=== PATIENT | female | born 1985 | race Caucasian/White ===

== ENCOUNTER 2016-10-30 13:38 | Emergency (ER) | payer MEDICAID ==
[~2016-10-30] VITALS: Ht 157.5 cm; Wt 75.5 kg
[~2016-10-30 13:38] MED LIST: ACET325T33 PO; AZIT250T94 PO; ERYT1OIN6 LEFT EYE; ERYT1OIN6 RIGHT EYE; GENT5DRO28 LEFT EYE; GUAI120S26 PO; IBUP-1542 PO; MECL12.574 PO; NAPR-260 PO; NITR-58 PO; ONDA4TAB8 PO
[2016-10-30 13:42] VITALS: Ht 157.5 cm; Wt 75.5 kg
[2016-10-30 15:21] LABS: URINE BLOOD (Dip) POC Negative (NEGATIVE)
[2016-10-30] MEDS ORDERED: NITR-58 PO (15:33)
[2016-10-30 15:39] VITALS: TEMP 98.9
--- NOTE | 2016-10-30 15:50 | ERD ---
ER Documentation Chief Complaint Date/Time DATE: 10/30/16 TIME: 15:47 Chief Complaint Complains of pain on urination with back pain HPI Patient is a 30-year-old female who presents the ED with dysuria, urgency and back pain for 1 week on and off. She also complains of suprapubic pain. Denies fever or chills. Denies hematuria. Denies abnormal vaginal discharge. Denies fever or chills. Denies abdominal pain, nausea, vomiting or diarrhea. She states that she has had UTIs in the past and feels that this is similar to what she has had in the past. Her last normal menstrual period was sometime in September. She is sexually active with one partner but does not use protection. No history of STDs. She denies pelvic pain. No other complaints. ROS All systems reviewed and are negative except as per history of present illness. Medications Home Meds Active Scripts Nitrofurantoin Monohyd Macrocr* (Macrobid*) 100 Mg Capsr, 100 MG PO BID for 7 Days, CAP Prov:OMI MARR PA-C 10/30/16 Vnalvrjfiab-F-Mkcijvsxin Hb* (Guaifenesin* DM Syrup) 120 Ml Syrup, 10 ML PO Q4H Y for COUGH, #120 ML Prov:ASTON AC PA-C 06/21/16 Acetaminophen* (Tylenol*) 325 Mg Tablet, 2 TAB PO Q8 Y for PAIN AND OR ELEVATED TEMP, #20 TAB Prov:ASTON AC PA-C 06/21/16 Azithromycin* (Zithromax*) 250 Mg Tablet, 250 MG PO .CHARYCK DIRECTED, #6 TAB TAKE 500 MG (2 TABS) THE FIRST DAY THEN 250 MG (1 TAB) DAYS 2-5 Prov:ASTON AC PA-C 06/21/16 Naproxen* (Naprosyn*) 500 Mg Tablet, 500 MG PO BID Y for PAIN AND/OR INFLAMMATION, #30 TAB Prov:MANAGUELOD,CLAYTON P CHEMICAL INSPECTOR 04/19/16 Nitrofurantoin Monohyd Macrocr* (Macrobid*) 100 Mg Capsr, 100 MG PO BID for 14 Days, CAP Prov:MANAGUELOD,CLAYTON P CHEMICAL INSPECTOR 04/19/16 Ondansetron Hcl* (Zofran*) 4 Mg Tablet, 4 MG PO Q6H for NAUSEA AND/OR VOMITING, #30 TAB Prov:MINHRANDELLROBERT C 04/04/16 Meclizine Hcl* (Antivert*) 12.5 Mg Tab, 12.5 MG PO Q6H Y for DIZZINESS, #20 TAB Prov:MINHROBERT Finnegan 04/04/16 Erythromycin (Erythromycin Opth) 3.5 Gm Oint..gm., 1 APPLIC RIGHT EYE QHS, #1 TUB Prov:ROBERTO WRIGHT NP 01/25/16 Gentamicin Sulfate* (Gentamicin Sulfate* Ophth) 0.3% - 5 Ml Drops, 1 DROP LEFT EYE Q4 for 10 Days, EA Prov:TUSHAR RODRIGUES PA-C 01/23/16 Ibuprofen* (Motrin*) 600 Mg Tab, 600 MG PO Q6, #20 TAB Prov:SANDRA CARLSON MD 06/12/15 Erythromycin (Erythromycin Opth) 3.5 Gm Oint..gm., 1 APPLIC LEFT EYE QID for 7 Days, EA Prov:LONNIE BOND PA-C 04/29/15 Allergies Allergies: Coded Allergies: No Known Allergy (Verified , 04/19/16) PMhx/Soc Medical and Surgical Hx: pt denies Medical Hx, pt denies Surgical Hx History of Surgery: No Anesthesia Reaction: No Hx Neurological Disorder: No Hx Respiratory Disorders: No Hx Cardiac Disorders: No Hx Psychiatric Problems: No Hx Miscellaneous Medical Probl: No Hx Alcohol Use: No Hx Substance Use: No Hx Tobacco Use: No Smoking Status: Never smoker FmHx Family History: No coronary disease, No diabetes, No other Physical Exam Vitals Vital Signs Date Time Temp Pulse Resp B/P Pulse Ox O2 Delivery O2 Flow Rate FiO2 10/30/16 15:39 98.9 98 Room Air 10/30/16 13:42 98.3 89 20 109/57 97 Physical Exam GENERAL: Well-developed, well-nourished female. Appears in no acute distress. LUNG: Clear to auscultation bilaterally. No rhonchi, wheezing, rales or coarse breath sounds. HEART: Regular rate and rhythm. No murmurs, rubs or gallops. ABDOMEN: No scars, ecchymosis or rashes noted. Soft, nontender, and nondistended. Positive bowel sounds in all four quadrants. No rebound tenderness , no guarding. (-) McBurneys point tenderness. No CVA tenderness. Suprapubic tenderness. SKIN: Normal color. Warm and dry. No rashes or lesions. Capillary refill < 2 seconds Results 24 hrs Laboratory Tests Test 10/30/16 15:23 Bedside Urine Blood Negative Bedside Urine Glucose (UA) Negative Bedside Urine Ketones (LAB) Negative Bedside Urine Leukocyte Esterase (L Trace Bedside Urine Nitrite (LAB) Negative Bedside Urine Protein (LAB) Negative Bedside Urine pH (LAB) 6.5 Procedures/MDM ER COURSE: I kept the patient and/or family informed of laboratory and diagnostic imaging results throughout the emergency room course. LABORATORY: UA shows trace leukocytes with no hematuria or nitrates. Urine test negative MEDICAL DECISION MAKING: This is a 30-year-old female who presents with dysuria and urgency. Vital signs were reviewed. Patient is afebrile. Patient is not hypoxic. Patient is not toxic or ill-appearing. Patient has a UTI. Low suspicion for ovarian torsion, PID, tuboovarian abscess, ectopic , bowel obstruction, pyelonephritis, appendicitis, cervicitis, septic , molar , HELLP syndrome, preeclampsia, eclampsia, placenta previa, placenta abruptia. DISCHARGE: At this time, patient is stable for discharge and outpatient management with no new complaints during the ER course. [facility] Patient will be discharged home with instructions to recheck for new or worsening symptoms such as fever, nausea, weakness, LOC and to follow up with primary care in the next 1-2 days. Patient was advised to return to the ER for any new or worsening symptoms. Plan was discussed and patient and/or family understands and agrees. Home instructions were given. Departure Diagnosis: Primary Impression: UTI (urinary tract infection) Urinary tract infection type: site unspecified Hematuria presence: without hematuria Qualified Code: N39.0 - Urinary tract infection without hematuria, site unspecified Condition: Stable Patient Instructions: Understanding Urinary Tract Infections (UTIs) Additional Instructions: Call your primary care doctor TOMORROW for an appointment during the next 1-2 days.See the doctor sooner or return here if your condition worsens before your appointment time. OMI MARR PA-C Oct 30, 2016 15:50
== END 2016-10-30 15:40 | disposition home or self-care (01) ==
LOC: FTE 13:38
DX: N39.0 Urinary tract infection, site not specified (principal)
CPT/HCPCS: 81003; 99283

== ENCOUNTER 2017-02-12 16:33 | Emergency (ER) | payer MEDICAID ==
[~2017-02-12] VITALS: Wt 76.0 kg
[2017-02-12] MEDS ORDERED: AMO500 PO (16:49)
[2017-02-12] MEDS ORDERED: CIPR7.5D4 BOTH EARS (16:49)
--- NOTE | 2017-02-12 17:01 | ERA ---
ER Documentation Chief Complaint Date/Time DATE: 02/12/17 TIME: 16:52 Chief Complaint BILAT EAR PAIN/COUGH/SORE THROAT X3DAYS HPI This is a 31-year-old female presenting with a chief complaint of bilateral ear pain and pharyngitis 3 days. Patient also states that she has had a fever (no measurement). The patient denies cough, difficulty breathing, dysphagia, change in voice, drooling, fatigue, oral swelling, headache, dizziness, change in hearing/loss of hearing, tinnitus, medical conditions or meningismus. Patient s vaccination status is up to date. Patient has not taken any medication to relieve the symptoms. ROS All systems reviewed and are negative except as per history of present illness. Medications Home Meds Active Scripts Ciprofloxacin Hcl/Dexameth (Ciprodex Otic Suspension) 7.5 Ml Drops.susp, 4 DROP BOTH EARS BID, #1 BOTTLE Prov:GENNARO CALLOWAY PA-C 02/12/17 Amoxicillin* (Amoxicillin*) 500 Mg Cap, 500 MG PO BID for 10 Days, CAP Prov:GENNARO CALLOWAY PA-C 02/12/17 Nitrofurantoin Monohyd Macrocr* (Macrobid*) 100 Mg Capsr, 100 MG PO BID for 7 Days, CAP Prov:OMI MARR PA-C 10/30/16 Csqdrynrxki-O-Rpcuntvemh Hb* (Guaifenesin* DM Syrup) 120 Ml Syrup, 10 ML PO Q4H Y for COUGH, #120 ML Prov:ASTON AC PA-C 06/21/16 Acetaminophen* (Tylenol*) 325 Mg Tablet, 2 TAB PO Q8 Y for PAIN AND OR ELEVATED TEMP, #20 TAB Prov:ASTON AC PA-C 06/21/16 Azithromycin* (Zithromax*) 250 Mg Tablet, 250 MG PO .ZPACK DIRECTED, #6 TAB TAKE 500 MG (2 TABS) THE FIRST DAY THEN 250 MG (1 TAB) DAYS 2-5 Prov:ASTON AC PA-C 06/21/16 Naproxen* (Naprosyn*) 500 Mg Tablet, 500 MG PO BID Y for PAIN AND/OR INFLAMMATION, #30 TAB Prov:MANAGUELOD,CLAYTON P COLLEGE TUTOR 04/19/16 Nitrofurantoin Monohyd Macrocr* (Macrobid*) 100 Mg Capsr, 100 MG PO BID for 14 Days, CAP Prov:CLAYTON WHITESIDE COLLEGE TUTOR 04/19/16 Ondansetron Hcl* (Zofran*) 4 Mg Tablet, 4 MG PO Q6H for NAUSEA AND/OR VOMITING, #30 TAB Prov:MINHRANDELLROBERT C 04/04/16 Meclizine Hcl* (Antivert*) 12.5 Mg Tab, 12.5 MG PO Q6H Y for DIZZINESS, #20 TAB Prov:ROBERT WILKINSON C 04/04/16 Erythromycin (Erythromycin Opth) 3.5 Gm Oint..gm., 1 APPLIC RIGHT EYE QHS, #1 TUB Prov:ROBERTO WRIGHT I. COLLEGE TUTOR 01/25/16 Gentamicin Sulfate* (Gentamicin Sulfate* Ophth) 0.3% - 5 Ml Drops, 1 DROP LEFT EYE Q4 for 10 Days, EA Prov:TUSHAR RODRIGUES PA-C 01/23/16 Ibuprofen* (Motrin*) 600 Mg Tab, 600 MG PO Q6, #20 TAB Prov:SANDRA CARLSON MD 06/12/15 Erythromycin (Erythromycin Opth) 3.5 Gm Oint..gm., 1 APPLIC LEFT EYE QID for 7 Days, EA Prov:LONNIE BOND PA-C 04/29/15 Allergies Allergies: Coded Allergies: No Known Allergy (Verified , 04/19/16) PMhx/Soc History of Surgery: No Anesthesia Reaction: No Hx Neurological Disorder: No Hx Respiratory Disorders: No Hx Cardiac Disorders: No Hx Psychiatric Problems: No Hx Miscellaneous Medical Probl: No Hx Alcohol Use: No Hx Substance Use: No Hx Tobacco Use: No Physical Exam Vitals Vital Signs Date Time Temp Pulse Resp B/P Pulse Ox O2 Delivery O2 Flow Rate FiO2 02/12/17 16:37 99.2 88 12 142/73 97 Physical Exam Const: Well-appearing 31-year-old female in no acute distress sitting up in bed and seems otherwise happy. Head: Atraumatic Eyes: Normal Conjunctiva. PERRLA. Extraocular movements intact bilaterally. ENT: Erythematous oropharynx with no exudates visualized. Tonsils mildly enlarged. Mucous membranes pink and moist. No sinus tenderness. Ears were tender to movement during otoscope exam. Ear canals were edematous and erythematous with a clear tympanic membrane and a visualized light cone reflux bilaterally. Normal External Nose. Neck: Bilateral tender anterior cervical lymphadenopathy. Full range of motion..~ No meningismus. Resp: Clear to auscultation bilaterally. No extra respiratory effort. Good bilateral equal airflow. Cardio: Regular rate and rhythm, no murmurs Abd: Soft, non tender, non distended. Normal bowel sounds Skin: No petechiae or rashes Back: No midline or flank tenderness Ext: No cyanosis, or edema Neur: Awake and alert Psych: Normal Mood and Affect Procedures/MDM 31-year-old female being evaluated for a chief complaint of pharyngitis and bilateral ear pain. Patient was evaluated and worked up for pharyngitis and bilateral ear pain. Patient is currently afebrile but reports a history of fever. The patient has a [place] Criteria of 3 out of 5. The current most likely dx is viral versus bacterial pharyngitis. Patient's history and ear exam are consistent with the signs and symptoms of external otitis media. The treatment plan will thus include out-patient antibiotics for pharyngitis and external otitis media along with supportive measures. At this time I do not suspect diphtheria, Meredith-Fuentes Virus, peritonsillar abscess, epiglottitis, retropharyngeal abscess, parapharyngeal abscess, allergic reaction, endangerment of the airway, or malignant otitis externa. I have spoke with the patient regarding their condition and future management. They have verbally responded that they understand their status and treatment plan. The patients vitals are stable, and their current condition is appropriate for discharge. The patient will be given discharge instructions with return precautions. Departure Diagnosis: Primary Impression: Pharyngitis Qualified Code: J02.9 - Pharyngitis, unspecified etiology Additional Impression: Otitis externa Qualified Code: H60.503 - Acute otitis externa of both ears, unspecified type Condition: Stable Patient Instructions: Pharyngitis, Strep (Presumed), External Ear Infection ( Adult) Additional Instructions: Follow up with your PCP within the next 1-3 days for a more thorough evaluation and a possible referral to a specialist. Return the the emergency department immediately if symptoms worsen or change. If you have any questions regarding medications, ask your pharmacist or us before you leave. If any adverse reactions occur while taking your medications, discontinue the treatment and return to the emergency department immediately. Take your medications as directed, and complete the entire course of treatment. GENNARO CALLOWAY PA-C February 12, 2017 17:01
== END 2017-02-12 16:52 | disposition home or self-care (01) ==
LOC: FTE 16:33 → E/R 16:52
DX: J02.9 Acute pharyngitis, unspecified (principal); H60.503 Unspecified acute noninfective otitis externa, bilateral
CPT/HCPCS: 99283

== ENCOUNTER 2017-06-15 08:18 | Emergency (ER) | payer MEDICAID ==
[~2017-06-15] VITALS: Ht 165.1 cm; Wt 80.5 kg
[~2017-06-15 08:18] MED LIST changes: +AMOX500C2 PO; +CIPR7.5D4 BOTH EARS; +ERYT1OIN6 BOTH EYES
[2017-06-15 08:21] VITALS: Ht 165.1 cm; Wt 80.5 kg
[2017-06-15] MEDS ORDERED: OFLO5DRO3 OP (09:45)
--- NOTE | 2017-06-15 13:50 | ERD ---
ER Documentation Chief Complaint Date/Time DATE: 06/15/17 TIME: 13:48 Chief Complaint pt bib self with c/o left eye reddness , seen here 3 wks ago for pink eye HPI This is a 31-year-old female brought into the emergency department for left eye redness for the past 3 weeks. Patient states that she has been seen here 3 weeks ago and was diagnosed with conjunctivitis and received erythromycin ointment. Patient states that she finished antibiotic and continues to have discharge. Patient denies any foreign body, significant pain, fevers, vision changes ROS All systems reviewed and are negative except as per history of present illness. Medications Home Meds Active Scripts Ofloxacin (Ofloxacin) 5 Ml Drops, 5 ML OP QID for 7 Days, BOTTLE Prov:CHRISSY BELL PA-C 06/15/17 Erythromycin (Erythromycin Opth) 3.5 Gm Oint..gm., 1 APPLIC BOTH EYES QID, #2 Prov:ELVIN JOSHI 05/16/17 Ciprofloxacin Hcl/Dexameth (Ciprodex Otic Suspension) 7.5 Ml Drops.susp, 4 DROP BOTH EARS BID, #1 BOTTLE Prov:GENNARO CALLOWAY PA-C 02/12/17 Amoxicillin* (Amoxicillin*) 500 Mg Cap, 500 MG PO BID for 10 Days, CAP Prov:GENNARO CALLOWAY PA-C 02/12/17 Nitrofurantoin Monohyd Macrocr* (Macrobid*) 100 Mg Capsr, 100 MG PO BID for 7 Days, CAP Prov:OMI MARR PA-C 10/30/16 Kjdqstmpkku-O-Ucykbwvnev Hb* (Guaifenesin* DM Syrup) 120 Ml Syrup, 10 ML PO Q4H Y for COUGH, #120 ML Prov:ASTON AC PA-C 06/21/16 Acetaminophen* (Tylenol*) 325 Mg Tablet, 2 TAB PO Q8 Y for PAIN AND OR ELEVATED TEMP, #20 TAB Prov:ASTON AC PA-C 06/21/16 Azithromycin* (Zithromax*) 250 Mg Tablet, 250 MG PO .ZPACK DIRECTED, #6 TAB TAKE 500 MG (2 TABS) THE FIRST DAY THEN 250 MG (1 TAB) DAYS 2-5 Prov:ASTON CA PA-C 06/21/16 Naproxen* (Naprosyn*) 500 Mg Tablet, 500 MG PO BID Y for PAIN AND/OR INFLAMMATION, #30 TAB Prov:MANAGUELOD,CLAYTON P MEAT PACKAGER 04/19/16 Nitrofurantoin Monohyd Macrocr* (Macrobid*) 100 Mg Capsr, 100 MG PO BID for 14 Days, CAP Prov:MANAGUELOD,CLAYTON P MEAT PACKAGER 04/19/16 Ondansetron Hcl* (Zofran*) 4 Mg Tablet, 4 MG PO Q6H for NAUSEA AND/OR VOMITING, #30 TAB Prov:ROBERT WILKINSON 04/04/16 Meclizine Hcl* (Antivert*) 12.5 Mg Tab, 12.5 MG PO Q6H Y for DIZZINESS, #20 TAB Prov:ROBERT WILKINSON 04/04/16 Erythromycin (Erythromycin Opth) 3.5 Gm Oint..gm., 1 APPLIC RIGHT EYE QHS, #1 TUB Prov:ROBERTO WRIGHT NP 01/25/16 Gentamicin Sulfate* (Gentamicin Sulfate* Ophth) 0.3% - 5 Ml Drops, 1 DROP LEFT EYE Q4 for 10 Days, EA Prov:TUSHAR RODRIGUES PA-C 01/23/16 Ibuprofen* (Motrin*) 600 Mg Tab, 600 MG PO Q6, #20 TAB Prov:SANDRA CARLSON MD 06/12/15 Erythromycin (Erythromycin Opth) 3.5 Gm Oint..gm., 1 APPLIC LEFT EYE QID for 7 Days, EA Prov:LONNIE BOND PA-C 04/29/15 Allergies Allergies: Coded Allergies: No Known Allergy (Verified , 06/15/17) PMhx/Soc History of Surgery: No Anesthesia Reaction: No Hx Neurological Disorder: No Hx Respiratory Disorders: No Hx Cardiac Disorders: No Hx Psychiatric Problems: No Hx Miscellaneous Medical Probl: No Hx Alcohol Use: No Hx Substance Use: No Hx Tobacco Use: No Smoking Status: Never smoker Physical Exam Vitals Vital Signs Date Time Temp Pulse Resp B/P Pulse Ox O2 Delivery O2 Flow Rate FiO2 06/15/17 08:21 98.3 70 16 127/60 100 Physical Exam Const: WDWN Head: Atraumatic Eyes: mild erythema in the left eye. PERRLA, EOMI ENT: Normal External Ears, Nose and Mouth. Neck: Full range of motion..~ No meningismus. Resp: Clear to auscultation bilaterally Cardio: Regular rate and rhythm, no murmurs Abd: Soft, non tender, non distended. Normal bowel sounds Skin: No petechiae or rashes Back: No midline or flank tenderness Ext: No cyanosis, or edema Neur: Awake and alert Psych: Normal Mood and Affect Procedures/MDM 31-year-old female brought into the emergency department f with signs and symptoms most consistent with a conjunctivitis, viral versus bacterial. No evidence of periorbital, orbital cellulitis. No evidence of global rupture or acute conditions. I discussed the patient that she should follow-up with an eyewear manufacturing tech in the next day. Patient was given prescription for moxifloxacin. I discussed with her to return to the ER for any worsening symptoms patient understands and agrees to this plan Departure Diagnosis: Primary Impression: Acute conjunctivitis Condition: Stable Patient Instructions: Conjunctivitis, Non-Specific Referrals: [facility] Hours: Mon - Fri 9:00 AM - 5:00 PM Additional Instructions: FOLLOW UP WITH YOUR PRIMARY CARE PHYSICIAN TOMORROW.Return to this facility if you are not improving as expected. Take all medicines as directed. Return to this facility if you are not improving as expected. CHRISSY BELL PA-C Jun 15, 2017 13:50
== END 2017-06-15 10:11 | disposition home or self-care (01) ==
LOC: FTE 08:18
DX: H10.32 Unspecified acute conjunctivitis, left eye (principal)
CPT/HCPCS: 99283